=== PATIENT | male | born 1965 | race Caucasian/White ===

== ENCOUNTER 2017-06-05 19:59 | Emergency (ER) | payer BC ==
[~2017-06-05] VITALS: Ht 188 cm; Wt 96.5 kg
[~2017-06-05 19:59] MED LIST: ASPIR 8181 M1 PO; ASPIR-LOW81 MG PO; BENADRYL25 MG PO; CORTISPORIN EAR10 ML RIGHT EAR; DELTASONE20 M1 PO; DOXYCYCLINE HY100 MG PO; FAMOTIDINE20 MG PO; FLONASE16 G1 BOTH NARES; LEVOFLOXACIN750 MG PO; LISINOPRIL10 MG PO; LO-DOSE ASPIRIN81 M1 PO; METHOCARBAMOL500 MG PO; MOTRIN800 MG PO; NITROSTAT0.4 MG SL; OXYCODONE-APAP1 EAC6 PO; OXYCONTIN20 MG PO; PERCOCET 10/1 TABLET PO; ROBAXIN500 MG PO; TYLENOL EXTRA500 MG PO; doxycycline
[2017-06-05] MEDS ORDERED: ZOFRAN4 MG PO (23:36)
[2017-06-05] MEDS ORDERED: NAPROSYN500 MG PO (23:40)
[2017-06-06] MEDS ORDERED: ULTRAM50 MG PO (00:19)
[2017-06-06 00:33] VITALS: BP 142/82
== END 2017-06-06 00:35 | disposition home or self-care (01) ==
LOC: RME 19:59 → EME 19:59 → RME 06-06 00:35
DX: R51 Headache (principal); F17.200 Nicotine dependence, unspecified, uncomplicated; Z88.0 Allergy status to penicillin; Z88.2 Allergy status to sulfonamides; Z88.1 Allergy status to other antibiotic agents
CPT/HCPCS: 70450; 99281; 99284; J1885

== ENCOUNTER 2017-12-28 16:42 | Emergency (ER) | payer BC ==
[~2017-12-28] VITALS: Ht 188 cm; Wt 102.6 kg
[~2017-12-28 16:42] MED LIST changes: +NAPROSYN500 MG PO; +ULTRAM50 MG PO; +ZOFRAN4 MG PO
[2017-12-28 19:06] VITALS: BP 150/98
== END 2017-12-28 19:07 | disposition home or self-care (01) ==
LOC: EME 16:42
PROC: 2W3DX1Z Immobilization of Left Lower Arm using Splint (ICD-10-PCS; principal; 2017-12-28)
DX: M65.842 Other synovitis and tenosynovitis, left hand (principal); F17.200 Nicotine dependence, unspecified, uncomplicated; Z88.1 Allergy status to other antibiotic agents; Z88.2 Allergy status to sulfonamides; Z88.0 Allergy status to penicillin
CPT/HCPCS: 73130; 99281; 99283